=== PATIENT | male | born 1975 | race Caucasian/White ===

== ENCOUNTER 2019-08-06 13:16 | Outpatient (CLI) | payer OTHER, SELFPAY | END 2019-08-06 13:17 | disposition home or self-care (01) | LOC: ANHSURGERY 13:20 | PROVIDERS: PCP Internal Medicine; Visit Provider Urology | DX: L72.9 Follicular cyst of the skin and subcutaneous tissue, unspecified (principal) | CPT/HCPCS: 87086 ==

== ENCOUNTER 2019-09-24 15:33 | Outpatient (CLI) | payer OTHER, SELFPAY | END 2019-09-24 15:34 | disposition home or self-care (01) | PROVIDERS: PCP Internal Medicine; Visit Provider Urology | DX: L72.9 Follicular cyst of the skin and subcutaneous tissue, unspecified (principal) | CPT/HCPCS: 87086 ==

== ENCOUNTER 2019-09-27 05:12 | Outpatient (CLI) | payer OTHER, SELFPAY ==
[2019-09-27 15:31] LABS: SARS-CoV-2 RNA PCR Negative
== END 2019-09-27 05:13 | disposition home or self-care (01) ==
LOC: ANHCOVIDDT 05:13
PROVIDERS: PCP Internal Medicine; Visit Provider Urology
DX: Z01.818 Encounter for other preprocedural examination (principal); Z11.59 Encounter for screening for other viral diseases
CPT/HCPCS: 87635; C9803; U0003

== ENCOUNTER 2019-09-29 00:22 | Day surgery (SDC) | payer OTHER, SELFPAY ==
[2019-08-03 14:18] VITALS: BMI 23.0
[2019-09-24 13:31] VITALS: BMI 23.0
[2019-09-29 10:14] VITALS: BP 149/92; PULSE 57; RESP 16; TEMP 36.9; O2SAT 100
[2019-09-29] MEDS: LACTATED RINGERS 1,000 ML 30 ML IV CONT (10:20)
--- NOTE | 2019-09-29 10:45 | WPDANESEPPF ---
Anes - Initial Pre Proc Eval Procedure: Operation Date: 09/29/19 12:00 Proposed Procedures p Excision of Scrotal Cyst - Fina Braswell MD Date/Time: 09/29/19 10:45 Surgeon: Fina Braswell MD Pre Op Diagnosis: Scrotal Cyst Patient Data Age: 44 Gender: M Height: 6 ft Weight: 77.11 kg Last Vital Signs Temp 36.9 C 09/29/19 10:14 Pulse 57 L 09/29/19 10:14 Resp 16 09/29/19 10:14 BP 149/92 H 09/29/19 10:14 Pulse Ox 100 09/29/19 10:14 Allergies Allergy/AdvReac Type Severity Reaction Status Date / Time No Known Allergies Allergy Verified 09/29/19 10:05 Home Medications Medication Instructions Recorded Confirmed Type ascorbic tpig-owvlomre-dhi 1,000 mg PO DAILY 09/24/19 09/29/19 History [Emergen-C] Patient hx anesthesia problems: none Family hx anesthesia problems: none PMFSH Social History Social History Smoking status: Never smoker Alcohol intake: current Anes - Eval Final PreProcedure Day of Procedure 09/29/19 10:45 Patient weight: normal Heart: regular rate and rhythm Lungs: clear to auscultation Airway: Mallampati scale class 1 Neurological: alert and oriented Last oral intake: >/= 8 hours ASA classification: I Emergent: no Anesthetic plan: proceed Anesthesia type and monitoring: general GIVS and standard monitoring Informed Consent: The patient's anesthetic plan and its attendant risks and benefits were discussed with the patient/family/POA. Questions were solicited and answers provided to the satisfaction of the patient/family/POA.
--- NOTE | 2019-09-29 12:25 | WPDHPUPDATE1 ---
History and Physical Update Update Date/Time: 09/29/19 12:25 History and Physical has been reviewed, including an updated exam of the patient. There are NO changes in the patient's condition. Risks, benefits, and alternatives have been discussed and questions answered. Patient agrees to proceed with procedure.
[2019-09-29] MEDS: ceFAZolin 2 GM/D5W 50 ML 2 GM/50 ML BAG IVPB (12:37)
[2019-09-29 13:16] VITALS: BP 127/69; PULSE 70; RESP 12; O2SAT 99
[2019-09-29 13:45] VITALS: BP 136/64; PULSE 48; RESP 12
[2019-09-29 14:05] VITALS: BP 149/92; PULSE 44; RESP 12
--- NOTE | 2019-09-29 20:41 | OP_ITS ---
DATE OF PROCEDURE: 09/29/2019 PREOPERATIVE DIAGNOSES: Sebaceous cyst of scrotum, multiple lesions, totaling over 5 cm. POSTOPERATIVE DIAGNOSES: Sebaceous cyst of scrotum, multiple lesions, totaling over 5 cm. PROCEDURE PERFORMED: Excision of scrotal lesions. DESCRIPTION OF PROCEDURE: Informed consent was obtained. The patient was taken to the operating room, given preoperative IV antibiotics. He was given a MAC anesthetic. He was prepped and draped in normal sterile fashion. We injected Marcaine under each of the areas of concern. The 2 largest collections of sebaceous cysts were excised in 2 separate groups. We then irrigated with cauterization of the base. We closed deep dermal layer 3-0 Vicryl suture and skin with a 3-0 chromic mattress suture. Two additional small lesions were excised and cauterized and 4-0 chromic suture, interrupted, were placed over these areas. The cysts were sent to pathology. The incisions were covered with antibiotic ointment and a dressing was placed. Scrotal support was placed. The patient was taken to the recovery room in stable condition. IV FLUIDS: Per Anesthesia. COMPLICATIONS: None. ESTIMATED BLOOD LOSS: Minimal. FOLLOWUP: The patient will follow up in the office in 2 weeks. Scott I MT: Darlene
--- NOTE | 2019-11-04 07:44 | HP_ITS ---
DATE OF SERVICE: 10/01/2019 HISTORY OF PRESENT ILLNESS: The patient is a 44-year-old gentleman with multiple scrotal lesions he desired excision. PAST MEDICAL HISTORY: Previous sebaceous cyst removal. FAMILY HISTORY: Hypertension. HOME MEDICINES: None. SOCIAL HISTORY: The patient is a nondrinker and nonsmoker. PHYSICAL EXAMINATION: GENERAL: The patient is awake, alert, oriented, no acute distress. RESPIRATORY: Breathing is unlabored. ABDOMEN: Soft, nontender, nondistended. BACK: Shows no CVA tenderness. : The patient has a normal phallus and bilateral descended testicles. Scrotal skin shows multiple sebaceous cysts. ASSESSMENT AND PLAN: The patient is a very pleasant gentleman with multiple sebaceous cysts of the scrotum. He elected to proceed with excision of cysts with a MAC anesthetic. Risks, benefits, and alternatives were discussed with the patient. The patient understands, had time to ask questions, agrees to proceed. Scott I MT: Darlene
== END 2019-09-29 14:18 | disposition home or self-care (01) ==
PROVIDERS: PCP Internal Medicine; Visit Provider Urology
PROC: (CPT 54060; principal; 2019-09-29 12:00)
DX: L94.2 Calcinosis cutis (principal)
CPT/HCPCS: 11426; 12042; 88305; A9270; J0690; J2250; J2405; J2704; J3010; J7120